=== PATIENT | female | born 1955 | race Two or more races ===

== ENCOUNTER → 2022-01-26 | Day surgery (SDC) | payer OTHER ==
[~2022-01-26] VITALS: Ht 167.6 cm; Wt 81.6 kg
[~2022-01-26] MED LIST: CIPROFLOXACIN 400MG/200ML 200 ML IV ONE; DexAMETHasone SOD PHOS 10MG/1ML VIAL INJ ONE; HYDROmorphone HCL 2 MG/ML VL/or syr IV PRN; IOHEXOL 300 MG/ML 100ML BOTTLE IJ ONE; LABETALOL HCL 5 MG/ML 4ML SYRINGE IV PRN; LOSA25TA38 PO; MANNITOL FTV 25% 12.5 GM/50 ML 50 ML IV ONE; MELO1TAB56 PO; MEPERIDINE HCL (50 MG/ML) 1 ML VIAL ONE; MIDAZOLAM HCL 2MG/2ML 2ml VIAL (1mg/ml) IV PRN; MIDAZOLAM HCL 2MG/2ML 2ml VIAL (1mg/ml) ONE; MONT-8 OR; MORPHINE SULFATE 4 MG/ML SYR/VIAL IV PRN; ONDANSETRON HCL 4 MG/2 ML VIAL IV PRN; PHENYLEPHRINE HCL 10 MG/ML VL IV ONE; PROPOFOL 10 MG/ML 20 ML IV ONE; SODIUM CHLORIDE 0.9% 500 ML IV ONE; SUCR1TAB22 OR; ePHEDrine SULFATE 50 MG/ML AMP IV PRN; fentaNYL CITRATE 100 MCG/2 ML VL ONE
[2022-01-26 11:10] VITALS: BP 155/87
== END | disposition home or self-care (01) ==
LOC: SUR 06:09
PROVIDERS: ATTEND Urology
DX: N13.2 Hydronephrosis with renal and ureteral calculous obstruction (principal); N13.1 Hydronephrosis with ureteral stricture, not elsewhere classified; Z20.822 Contact with and (suspected) exposure to COVID-19
CPT/HCPCS: 50590; 52332; C1769; J0744; J1100; J2150; J2175; J2250; J2370; J2405; J2704; J3010; J7030; Q9967; U0003